=== PATIENT | female | born 1970 | race Caucasian/White ===

== ENCOUNTER 2020-01-09 17:13 | Inpatient (IN) | payer BC, MEDICAID ==
[~2020-01-09] VITALS: Ht 165.1 cm; Wt 68.1 kg
[2020-01-09] MEDS ORDERED: KETOROLAC TROMETH 30 MG/ML 1ML VIAL IV ONE (18:15)
[2020-01-09 18:41] LABS: Basophils # (auto) 0 10 ^3/uL (0-0.2); Basophils % (auto) 0.4 % (0.0-2.0); Eosinophils # (auto) 0 10 ^3/uL (0-0.8); Hematocrit 39.2 % (36.0-46.0); Hemoglobin 13.2 g/dL (12.2-16.2); Lymphocytes # (auto) 0.5 10 ^3/uL (0.4-5.4); Lymphocytes % (auto) 4.8 % (10.0-50.0); Mean Corpuscular Hemoglobin 31.7 pg (28.0-32.0); Mean Corpuscular Hgb Conc. 33.7 g/dL (32.0-36.0); Monocytes # (auto) 0.2 10 ^3/uL (0-1.3); Monocytes % (auto) 1.9 % (0.0-12.0); Neutrophils # (auto) 9.5 10 ^3/uL (1.6-8.6); Neutrophils % (auto) 92.9 % (37.0-80.0); Platelet Count (auto) 221 10^3/uL (140-450); Red Blood Cells 4.17 10^6/uL (4.0-5.20); Red Cell Distribution Width 13.6 % (11.8-14.3); White Blood Cell 10.2 10^3/uL (4.4-10.8)
[2020-01-09 18:57] LABS: Anion Gap 6 (5-15); Blood Urea Nitrogen 19 mg/dL (7-18); Calcium 9.2 mg/dL (8.5-10.1); Carbon Dioxide 26 mmol/L (21-32); Chloride 107 mmol/L (98-107); GFR African American 57 mL/min; GFR Non-African American 47 mL/min; Glucose 156 mg/dL (74-106); Magnesium 2.1 mg/dL (1.6-2.6); Potassium 3.7 mmol/L (3.5-5.1); Sodium 139 mmol/L (136-145)
[2020-01-09 19:02] LABS: Alanine Aminotransferase 29 U/L (13-56); Alkaline Phosphatase 91 U/L (45-117); Aspartate Aminotransferase 20 U/L (15-37); Bilirubin, Total 0.4 mg/dL (0.2-1.0); Total Protein 8.3 g/dL (6.4-8.2)
[2020-01-09] MEDS ORDERED: SODIUM CHLORIDE 0.9% 1,000 ML IV ONE ×2 (19:12)
[2020-01-09] MEDS ORDERED: TAMSULOSIN HYDROCHLORIDE 0.4 MG CAP PO ONE (19:15)
[2020-01-09 19:26] LABS: Urine Bacteria FEW /hpf (None Seen); Urine Blood TRACE /uL (Negative); Urine Mucus FEW (None Seen); Urine Specific Gravity 1.026 (1.001-1.035); Urine WBC 1 /hpf (0 - 5)
[2020-01-09] MEDS ORDERED: ONDANSETRON HCL 4 MG/2 ML VIAL IV ONE (19:45)
[2020-01-09] MEDS ORDERED: MORPHINE SULFATE 4 MG/ML SYR/VIAL IV ONE (19:45)
[2020-01-09] MEDS ORDERED: MORPHINE SULFATE 4 MG/ML SYR/VIAL IV PRN (20:45)
[2020-01-09] MEDS ORDERED: ONDANSETRON HCL 4 MG/2 ML VIAL IV PRN ×2 (20:45→21:00)
[2020-01-09] MEDS ORDERED: HYDROcodone-ACET 5/325MG TAB PO PRN ×2 (20:45→21:00)
[2020-01-09] MEDS ORDERED: TEMAZEPAM 15 MG CAP PO PRN ×2 (20:45→22:00)
[2020-01-09] MEDS ORDERED: ACETAMINOPHEN 325 MG TAB PO PRN ×2 (20:45→21:00)
[2020-01-09] MEDS ORDERED: MORPHINE SULF INJ 2 MG/ML SYRINGE 1ML IV PRN (21:00)
[2020-01-09] MEDS ORDERED: FAMOTIDINE 20 MG TAB PO SCH (22:00)
[2020-01-09] MEDS: FAMOTIDINE 20 MG TAB PO SCH (22:12)
[2020-01-09 23:40] VITALS: BP 124/78
[2020-01-10 05:12] VITALS: BP 98/50
[2020-01-10 06:20] LABS: Basophils # (auto) 0 10 ^3/uL (0-0.2); Basophils % (auto) 0.4 % (0.0-2.0); Eosinophils # (auto) 0 10 ^3/uL (0-0.8); Eosinophils % (auto) 0.4 % (0.0-7.0); Hematocrit 34.6 % (36.0-46.0); Hemoglobin 11.8 g/dL (12.2-16.2); Lymphocytes # (auto) 1.2 10 ^3/uL (0.4-5.4); Lymphocytes % (auto) 13.4 % (10.0-50.0); Mean Corpuscular Hemoglobin 32.2 pg (28.0-32.0); Mean Corpuscular Hgb Conc. 34.1 g/dL (32.0-36.0); Mean Corpuscular Volume 94.5 fL (80.0-100.0); Monocytes # (auto) 0.6 10 ^3/uL (0-1.3); Monocytes % (auto) 6.5 % (0.0-12.0); Neutrophils % (auto) 79.3 % (37.0-80.0); Platelet Count (auto) 195 10^3/uL (140-450); Red Blood Cells 3.67 10^6/uL (4.0-5.20); Red Cell Distribution Width 13.5 % (11.8-14.3); White Blood Cell 8.8 10^3/uL (4.4-10.8)
[2020-01-10 06:48] LABS: Calcium 8.4 mg/dL (8.5-10.1); Potassium 3.6 mmol/L (3.5-5.1)
[2020-01-10 09:00] VITALS: BP 104/57
[2020-01-10] MEDS ORDERED: SODIUM CHLORIDE 0.9% 1,000 ML IV ONE (10:00)
[2020-01-10] MEDS ORDERED: MANNITOL FTV 25% 12.5 GM/50 ML 50 ML IV ONE (10:00)
[2020-01-10] MEDS: FAMOTIDINE 20 MG TAB PO SCH ×2 (11:30→21:12)
[2020-01-10] MEDS ORDERED: KETOROLAC TROMETH 30 MG/ML 1ML VIAL IV PRN (11:45)
[2020-01-10] MEDS: SOD CHL 0.45% 1,000 ML IV SCH ×2 (12:00→21:13)
[2020-01-10 13:00] VITALS: BP 109/65
[2020-01-10 16:28] VITALS: BP 124/54
[2020-01-10] MEDS ORDERED: TAMSULOSIN HYDROCHLORIDE 0.4 MG CAP PO SCH (18:00)
[2020-01-10 20:00] VITALS: BP 132/77
[2020-01-10 21:42] VITALS: BP 132/77
[2020-01-11 04:40] VITALS: BP 145/72
[2020-01-11] MEDS: SOD CHL 0.45% 1,000 ML IV SCH (08:35)
[2020-01-11 08:42] VITALS: BP 138/90
[2020-01-11] MEDS: FAMOTIDINE 20 MG TAB PO SCH (10:15)
[2020-01-11] MEDS ORDERED: TAM04C PO (10:23)
[2020-01-11 13:07] VITALS: BP 131/80
[2020-01-11 13:31] VITALS: BP 131/80
== END 2020-01-11 14:30 | disposition home or self-care (01) | DRG 694 ==
LOC: ER 17:13 → OVERFLOW 17:14 → WEST WING 23:40
PROVIDERS: ADMIT Nurse Practitioner; ATTEND Internal Medicine
DX: N13.2 Hydronephrosis with renal and ureteral calculous obstruction (principal); J98.11 Atelectasis; D25.9 Leiomyoma of uterus, unspecified; H91.90 Unspecified hearing loss, unspecified ear; M41.86 Other forms of scoliosis, lumbar region; N17.9 Acute kidney failure, unspecified; Z90.710 Acquired absence of both cervix and uterus
CPT/HCPCS: 36415; 71045; 74176; 80048; 80053; 81001; 83735; 84484; 85025; 93005; G0378; J1885; J2405